=== PATIENT | female | born 2005 | race Two or more races ===

== ENCOUNTER → 2025-06-27 | Outpatient (BNVA) | payer BC, SELFPAY | END | disposition home or self-care (01) | PROVIDERS: PCP Nurse Practitioner Family; Referring Provider Nurse Practitioner Family; Visit Provider Nurse Practitioner Family | DX: Z02.0 Encounter for examination for admission to educational institution (principal); Z23 Encounter for immunization; Z11.1 Encounter for screening for respiratory tuberculosis; Z11.59 Encounter for screening for other viral diseases | CPT/HCPCS: 90471; 90472; 90700; 90715; 99204 ==

== ENCOUNTER → 2025-06-30 | Outpatient (BNVA) | payer BC, SELFPAY | END | disposition home or self-care (01) | PROVIDERS: PCP Nurse Practitioner Family; Referring Provider Nurse Practitioner Family; Visit Provider Nurse Practitioner Family | DX: Z71.2 Person consulting for explanation of examination or test findings (principal); Z23 Encounter for immunization | CPT/HCPCS: 90471; 90472; 90619; 90620; 90651; 90744; 99212 ==